=== PATIENT | female | born 1955 | race Caucasian/White ===

== ENCOUNTER 2019-12-14 13:45 | Outpatient (CLI) | payer BC, SELFPAY ==
--- NOTE | 2019-12-14 13:47 | MM_ITS ---
WS: [id number] Bilateral screening digital mammogram, 12/14/2019 Clinical Data: SCREENING Comparison: 11/12/2018, 05/08/2017, 05/07/2016, 03/24/2015, 12/27/2013, 12/17/2013, 10/19/2012, 09/12/2011, , 01/01/2008, 12/30/2006. Findings: The breast parenchymal pattern shows fibroglandular tissue. Both breasts have developed areas of suspicious calcifications. In the right breast there are clustered calcifications 3.2 cm posterior and slightly superior to the right areola at the 12:00 position. In the upper outer quadrant of the right breast there are other more scattered calcifications which h ave developed and these are 5 and 1/2 to 7 cm from the areola in the 11:00 position. In the left breast there are scattered calcifications which are felt to 0.3 cm posterior to the left areola again in the 12:00 position. In the left breast are also calcifications which are 5 cm from th e areola in the upper outer quadrant in the 11:00 position. There are no secondary signs of carcinoma. MM/[place] [id number] Impression: 1. Bilateral small calcifications which have developed since the prior mammogra m. 2. Recommend ML and CC compression views of both breasts including areas baby registry sales consultant ior to the nipple and in the upper quadrants. 3. Bilateral breast ultrasound may also be helpful. BIRADS: 0-Incomplete: Need additional imaging evaluation FOLLOW UP: See Report The CAD bakery products checker was used.
== END 2019-12-14 13:46 | disposition home or self-care (01) ==
LOC: RADSHAW 13:45
PROVIDERS: Family Provider Family Medicine; PCP Family Medicine; Visit Provider Family Medicine
DX: Z12.31 Encounter for screening mammogram for malignant neoplasm of breast (principal)
CPT/HCPCS: 77067

== ENCOUNTER 2019-12-22 07:35 | Outpatient (CLI) | payer BC, SELFPAY ==
--- NOTE | 2019-12-22 07:56 | US_ITS ---
WS: [id number] Bilateral breast ultrasound, 12/22/2019 Clinical Data: CLUSTERED CALCIFICATIONS Comparison: Mammogram, 12/22/2019 Findings: The calcifications in both breasts are apparent. In the right breast at 12:00 there is a small density measuring 0.48 x 0.71 x 0.76 cm adjacent to the calcifications. In the 11:00 position 4 cm from the areola there are scattered calcifications. There may be a small density measuring 0.49 x 0.62 x 0.78 cm. In the left breast noted densities are seen at the 12:00 position posterior to the areola. There are calcifications at the 12:00 position At the 1:00 position 4 cm from the areola there is a small nodul e measuring 0.38 x 0.53 x 0.59 cm along with calcifications. Because of the patient's breast reduction surgery, these calcifications may be related to the surgery . US/US breast BI limited* [id number] Impression: 1. Bilateral calcifications in both breasts which are clustered and have small nodules but may be related to the patient's breast reduction surgery. 2. Recommend breast MRI. 3. If MRI is not performed, then a 3 month follow-up mammogram is recommended t o note any changes in these calcifications. BIRADS: 0-Incomplete: Need additional imaging evaluation FOLLOW UP: See Report
--- NOTE | 2019-12-22 07:56 | MM_ITS ---
WS: [id number] Bilateral diagnostic digital mammogram, 12/22/2019 Clinical Data: CALCIFICATIONS CLUSTERED Comparison: 12/14/2019, 11/12/2018. Findings: The right breast shows calcifications posterior to the right areola and in the upper outer quadrant. These are clustered and have developed since the mammogram of 11/12/2018. Scattered calcifications in the left breast posterior to the left areola and the 12:00 position and t he upper outer quadrant left breast again are seen. Note definite masses are associated with these calcifications. Because of the history of bilateral br east reduction in these calcifications could be related to the breast surgery. Bilateral mammograms w ill be performed. MM/[place] [id number] Impression: 1. New calcifications in both breasts which have appeared since breast reductio n surgery. 2. Recommend bilateral breast ultrasound. BIRADS: 4-Suspicious FOLLOW UP: Need Additional Imaging The CAD waterway traffic checker was used.
== END 2019-12-22 07:36 | disposition home or self-care (01) ==
LOC: RADSHAW 07:35
PROVIDERS: Family Provider Family Medicine; PCP Family Medicine; Visit Provider Family Medicine
DX: R92.1 Mammographic calcification found on diagnostic imaging of breast (principal); R92.8 Other abnormal and inconclusive findings on diagnostic imaging of breast
CPT/HCPCS: 76642; 77066

== ENCOUNTER 2020-12-27 09:38 | Outpatient (CLI) | payer MEDICARE, SELFPAY ==
--- NOTE | 2020-12-27 09:58 | FL_ITS ---
WS: [id number] UPPER GI WITH AIR TECHNICAL: Double contrast upper GI with thin and thick barium FLUOROSCOPY TIME: 2.8 minutes CLINICAL INFORMATION: DYSPHAGIA COMPARISON: None. FINDINGS: Swallowing: No evidence of aspiration penetration. Esophagus: Mild esophageal dysmotility with evidence of reflux esophagitis in the mid and distal esop hagus. Marked reflux is visualized in the upright and supine position to the upper esophagus and hypo pharynx. Only small esophageal hiatal hernia. No evidence of high-grade stricture or obstructing mass . Gastroesophageal reflux: Marked reflux Stomach: Diffuse thickening of the rugal folds consistent with gastritis. Normal gastric emptying. Duodenum: Duodenal C-loop appears normal. Other findings: None. FL/FL upper GI w air* [id number] IMPRESSION: 1. Marked severe active reflux is visualized in the upright and supine positio ns to the upper esophagus and hypopharynx. 2. Reflux esophagitis visualized in the mid and distal esophagus. 3. Mild esophageal dysmotility. No high-grade stricture or obstructing mass. 4. Small esophageal hiatal hernia. 5. Evidence of gastritis.
== END 2020-12-27 09:39 | disposition home or self-care (01) ==
LOC: RADWPI 09:47
PROVIDERS: PCP Family Medicine; Visit Provider Surgery
DX: R13.10 Dysphagia, unspecified (principal); K44.9 Diaphragmatic hernia without obstruction or gangrene; K21.00 Gastro-esophageal reflux disease with esophagitis, without bleeding
CPT/HCPCS: 74246

== ENCOUNTER → 2021-01-26 10:07 | Outpatient (BNVA) | payer MEDICARE, BC, SELFPAY | PROVIDERS: PCP Family Medicine; Visit Provider Surgery | DX: Z01.812 Encounter for preprocedural laboratory examination (principal); Z20.822 Contact with and (suspected) exposure to COVID-19 | CPT/HCPCS: 87635 ==

== ENCOUNTER 2021-01-31 06:34 | Day surgery (SDC) | payer MEDICARE, BC, SELFPAY ==
--- NOTE | 2021-01-31 06:50 | ANES.PREANE2 ---
Pre-Anesthetic Assessment Pre-Anesthetic Assessment: Height/Weight: Height 1.75 m Weight 79.379 kg Preop Diagnosis: DYSPHAGIA Proposed Procedure: Operation Date: 01/31/21 08:00 Proposed Procedures p EGD/colon 14394 [id number] R13.10 Z12.11 Z86.010(Not Applicable) - Kameron Meeks MD s Colonoscopy(Not Applicable) - Kameron Meeks MD Was Beta Cindi taken within 24 hours: Yes Was Clonidine taken within 24 hours: N/A Social: Social History: No alcohol and No tobacco Exam: Pre-Anes Outpt Exam: alert, oriented x 3, clear to auscultation bilaterally and regular rate & rhythm Airway: Submandibular: WNL Cervical ROM: WNL MP: 2 Dentition: Full CV/HEM: CV/HEM: HTN Anesthetic Plan: ASA status: 2 Anesthesia: MAC Risk of > 500 ml blood loss (7ml/kg in children): No Data Anesthesia Cardiac Studies: No Data to Display
[2021-01-31 07:13] VITALS: BP 139/79; PULSE 54; RESP 18; TEMP 36.4; O2SAT 99
[2021-01-31] MEDS: sodium chloride 0.9% 1,000 ML 30 ML IV (07:27)
--- NOTE | 2021-01-31 08:03 | W.PM.OPSUD ---
Surgery/Procedure H&P Update DATE OF PROCEDURE: January 31, 2021 DATE H&P PERFORMED: 01/03/21 H&P UPDATE INFORMATION: I have reviewed H&P completed within last 30 days, I have examined patient prior to procedure and No changes to prior documentation PREOP DIAGNOSIS: DYSPHAGIA/history of colon polyps PRIMARY INDICATION FOR PROCEDURE: The same PLANNED PROCEDURE: Operation Date: 01/31/21 08:00 Proposed Procedures p EGD/colon [id number] R13.10 Z12.11 Z86.010(Not Applicable) - Kameron Meeks MD s Colonoscopy(Not Applicable) - Kameron Meeks MD
[2021-01-31 08:40] VITALS: BP 103/66; PULSE 51; RESP 16; TEMP 36.2; O2SAT 96
--- NOTE | 2021-01-31 08:43 | ANE.PACU2 ---
Inpatient post-anesthesia follow up: Airway intact: Yes Vital signs: Temperature 97.1 F Pulse Rate 51 Respiratory Rate 16 Blood Pressure 103/66 Pulse Oximetry 96 Oxygen Delivery Me thod Room Air Oxygen Flow Rate Fraction of Inspir ed Oxygen Hydration adequate: Yes Nausea and vomiting: No Pain level: 1 Mental status: Baseline
[2021-01-31 08:49] VITALS: BP 113/75; PULSE 55; RESP 18; O2SAT 95
[2021-02-02 14:39] LABS: H. Pylori / CLO Test Negative
== END 2021-01-31 09:10 | disposition home or self-care (01) ==
PROVIDERS: PCP Family Medicine; Visit Provider Surgery
PROC: 0DJ08ZZ Inspection of Upper Intestinal Tract, Via Natural or Artificial Opening Endoscopic (ICD-10-PCS; CPT 43235; principal; 2021-01-31 08:00)
PROC: 0DJD8ZZ Inspection of Lower Intestinal Tract, Via Natural or Artificial Opening Endoscopic (ICD-10-PCS; CPT 45378; 2021-01-31 08:00)
DX: Z86.010 Personal history of colon polyps (principal); R13.10 Dysphagia, unspecified; K21.00 Gastro-esophageal reflux disease with esophagitis, without bleeding; K21.9 Gastro-esophageal reflux disease without esophagitis; K44.9 Diaphragmatic hernia without obstruction or gangrene; K29.70 Gastritis, unspecified, without bleeding; D12.5 Benign neoplasm of sigmoid colon; Z79.82 Long term (current) use of aspirin; I10 Essential (primary) hypertension
CPT/HCPCS: 43239; 45380; 87077; 88305; 96360; J2704; J7030

== ENCOUNTER 2022-01-04 13:17 | Outpatient (CLI) | payer MEDICARE, BC, SELFPAY ==
--- NOTE | 2022-01-04 13:25 | MM_ITS ---
WS: [id number] BILATERAL SCREENING 3D TOMOSYNTHESIS DIGITAL MAMMOGRAM WITH CAD HISTORY: SCREENING COMPARISON: 12/22/2019, 12/14/2019, 11/12/2018 Bilateral CC and MLO views submitted. Computer aided detection analyzed. Breast composition: There are scattered areas of fibroglandular density. No suspicious masses, microc alcifications or architectural distortion. Lucent centered calcifications in each breast. There are a dditional scattered round calcifications in each breast. The extent of calcifications has actually im proved since the prior studies. MM/[place] [id number] IMPRESSION: BI-RADS: 2-Benign FOLLOW UP: 1 Year Follow-up
== END 2022-01-04 13:18 | disposition home or self-care (01) ==
LOC: RAD 13:20
PROVIDERS: PCP Family Medicine; Visit Provider Family Medicine
DX: Z12.31 Encounter for screening mammogram for malignant neoplasm of breast (principal)
CPT/HCPCS: 77063; 77067

== ENCOUNTER 2023-01-09 10:44 | Outpatient (CLI) | payer MEDICARE, SELFPAY ==
--- NOTE | 2023-01-09 11:06 | MM_ITS ---
WS: [id number] BILATERAL SCREENING DIGITAL TOMOSYNTHESIS MAMMOGRAM WITH CAD HISTORY: SCREENING COMPARISON: 01/04/2022, 12/14/2019 Bilateral CC and MLO views with tomosynthesis and synthetic mammography submitted. Computer aided det ection analyzed. Breast composition: There are scattered areas of fibroglandular density. No suspicious masses, microc alcifications or architectural distortion. Benign calcifications in each breast. MM/[place] [id number] IMPRESSION: BI-RADS: 2-Benign FOLLOW UP: 1 Year Follow-up
== END 2023-01-09 10:45 | disposition home or self-care (01) ==
PROVIDERS: PCP Family Medicine; Visit Provider Family Medicine
DX: Z12.31 Encounter for screening mammogram for malignant neoplasm of breast (principal)
CPT/HCPCS: 77063; 77067

== ENCOUNTER → 2023-01-21 10:25 | Outpatient (BNVA) | payer MEDICARE, SELFPAY | PROVIDERS: PCP Family Medicine; Visit Provider Podiatrist Foot & Ankle Surgery | DX: L60.0 Ingrowing nail (principal) | CPT/HCPCS: 11750; 99203 ==

== ENCOUNTER 2023-03-06 07:54 | Outpatient (CLI) | payer MEDICARE, SELFPAY | END 2023-03-06 07:55 | disposition home or self-care (01) | LOC: RT 07:59 | PROVIDERS: PCP Family Medicine; Visit Provider Family Medicine | DX: J45.909 Unspecified asthma, uncomplicated (principal) | CPT/HCPCS: 94010; 94726; 94729 ==

== ENCOUNTER 2023-03-17 13:00 | Outpatient (CLI) | payer MEDICARE, SELFPAY | END 2023-03-17 13:01 | disposition home or self-care (01) | LOC: SLEEP 03-18 15:05 | PROVIDERS: PCP Family Medicine; Visit Provider Family Medicine | DX: G47.10 Hypersomnia, unspecified (principal); G47.33 Obstructive sleep apnea (adult) (pediatric) | CPT/HCPCS: G0399 ==

== ENCOUNTER → 2023-04-15 10:33 | Outpatient (BNVA) | payer MEDICARE, SELFPAY | PROVIDERS: PCP Family Medicine; Visit Provider Surgery | DX: R13.10 Dysphagia, unspecified (principal); K21.9 Gastro-esophageal reflux disease without esophagitis | CPT/HCPCS: 99213 ==

== ENCOUNTER 2023-04-23 07:17 | Day surgery (SDC) | payer MEDICARE, SELFPAY ==
[2023-04-22 13:42] VITALS: BMI 25.2
[2023-04-23 07:30] VITALS: BP 145/78; PULSE 58; RESP 16; TEMP 36.5; O2SAT 97
--- NOTE | 2023-04-23 07:41 | ANES.PREANE2 ---
Pre-Anesthetic Assessment Height/Weight: Height 1.75 m Weight 77.564 kg Temp Pulse Resp BP Pulse Ox O2 Del Method 97.7 F 58 L 16 145/78 97 Room Air 04/23/23 07:30 04/23/23 07:30 04/23/23 07:30 04/23/23 07:30 04/23/23 07:30 04/23/23 07:30 Operation Date: 04/23/23 08:30 Proposed Procedures p egd w/ ball 13695 K21.9,, R13.10(Not Applicable) - Osvaldo Sanchez DO Familial anesthetic complications: ponv Was Beta Cindi taken within 24 hours: Yes Was Clonidine taken within 24 hours: N/A Last intake: Intake Last Liquid Date 04/22/23 Last Liquid Time 23:30 Last Solid Date 04/22/23 Last Solid Time 17:00 Social No alcohol and No tobacco Exam alert, oriented x 3, clear to auscultation bilaterally and regular rate & rhythm Airway Mallampati: Class II Dentition: chipped CV/HEM Hypertension GI Gastroesophageal Reflux Disease Anesthetic Plan ASA status: 2 Anesthesia: MAC Risk of > 500 ml blood loss (7ml/kg in children): No Medications/Allergies Home Medications Medication Instructions Recorded Confirmed Last Taken Type metoprolol tartrate 25 mg tablet 25 mg PO BID 12/07/20 04/22/23 04/23/23 06:15 History multivitamin,tx-enhq-fhecbpod 1 tab PO DAILY 12/07/20 04/22/23 04/22/23 History (Complete Multivitamin tablet) omega-3 fatty acids 1,000 mg 1,000 mg PO DAILY 12/07/20 04/22/23 04/22/23 History capsule (Fish Oil Concentrate) sertraline 50 mg tablet 50 mg PO DAILY 12/07/20 04/22/23 04/22/23 History simvastatin 40 mg tablet 40 mg PO DAILY 12/07/20 04/22/23 04/22/23 History loratadine 10 mg tablet (Claritin) 10 mg PO DAILY 04/15/23 04/22/23 04/22/23 History pantoprazole 40 mg tablet,delayed 40 mg PO BID 30 days #60 tabs 04/15/23 04/22/23 04/22/23 Rx release (Protonix) albuterol sulfate 90 mcg/actuation 2 puff inhalation QID PRN 07/25/23 07/25/23 07/25/23 History aerosol inhaler Shortness Of Breath Allergies Allergy/AdvReac Type Severity Reaction Status Date / Time cefaclor [From Ceclor] Allergy Unknown Unknown Verified 01/21/23 10:31 sulfamethoxazole Allergy Unknown Unknown Verified 01/21/23 10:31 [From Bactrim] trimethoprim [From Bactrim] Allergy Unknown Unknown Verified 01/21/23 10:31 [facility] Anesthesia Medical History (Updated 04/15/23 @ 11:16 by Osvaldo Sanchez DO) Colon polyp Dysphagia Dysphagia Esophagitis Fatty infiltration of liver Gastritis GERD (gastroesophageal reflux disease) Hiatal hernia History of deviated nasal septum Hypercholesteremia Hypertension Surgical History (Updated 04/15/23 @ 11:16 by Osvaldo Sanchez DO) History of arthroplasty of left knee History of bilateral breast reduction surgery (~2017) History of blepharoplasty (~2018) History of cardiac catheterization (~2008) History of colonoscopy (~2016) History of esophagogastroduodenoscopy (EGD) 2020 History of hemorrhoidectomy (~2012) History of hysterectomy History of left knee surgery History of right cataract surgery (~10/2020) Social History Smoking and tobacco status: never smoked Data Anesthesia Cardiac Studies: No Data to Display
[2023-04-23] MEDS: sodium chloride 0.9% 1,000 ML 30 ML IV (07:59)
--- NOTE | 2023-04-23 08:59 | W.PM.OPSUD ---
Surgery/Procedure H&P Update DATE OF PROCEDURE: April 23, 2023 DATE H&P PERFORMED: 04/15/23 H&P UPDATE INFORMATION: I have reviewed H&P completed within last 30 days, I have examined patient prior to procedure and No changes to prior documentation PLANNED PROCEDURE: Operation Date: 04/23/23 08:30 Proposed Procedures p egd david/ helder [id number] K21.9,, R13.10(Not Applicable) - Osvaldo Sanchez, DO
[2023-04-23 09:23] VITALS: BP 87/47; PULSE 62; RESP 18; TEMP 36.5; O2SAT 92
[2023-04-23 09:37] VITALS: BP 101/57; PULSE 63; RESP 18; TEMP 36.2; O2SAT 91
--- NOTE | 2023-04-23 09:40 | ANE.PACU2 ---
Inpatient post-anesthesia follow up: Airway intact: Yes Vital signs: Temperature 97.2 F Pulse Rate 63 Respiratory Rate 18 Blood Pressure 101/57 Pulse Oximetry 91 Oxygen Delivery Me thod Room Air Oxygen Flow Rate Fraction of Inspir ed Oxygen Hydration adequate: Yes Nausea and vomiting: No Pain level: 1 Mental status: Baseline
== END 2023-04-23 10:00 | disposition home or self-care (01) ==
PROVIDERS: PCP Family Medicine; Visit Provider Surgery
DX: R13.10 Dysphagia, unspecified (principal); K21.9 Gastro-esophageal reflux disease without esophagitis; K29.50 Unspecified chronic gastritis without bleeding; K22.2 Esophageal obstruction; I10 Essential (primary) hypertension
CPT/HCPCS: 43239; 43249; 88305; 88342; J2704; J7030

== ENCOUNTER → 2023-05-14 16:35 | Outpatient (BNVA) | payer MEDICARE, SELFPAY | PROVIDERS: PCP Family Medicine; Visit Provider Surgery | DX: Z09 Encounter for follow-up examination after completed treatment for conditions other than malignant neoplasm (principal) | CPT/HCPCS: 99212 ==